=== PATIENT | male | born 1965 | race African-American/Black ===

== ENCOUNTER 2023-08-31 16:51 | Emergency (ER) | payer SELFPAY ==
[~2023-08-31] VITALS: Ht 165.1 cm; Wt 80.0 kg
[2023-08-31 17:07] VITALS: BP 126/90; PULSE 96; RESP 18; TEMP 98.6; O2SAT 99
== END 2023-09-01 03:22 | disposition home or self-care (01) ==
LOC: EDBD 16:51 → ER 16:51
DX: R41.82 Altered mental status, unspecified (principal); F10.129 Alcohol abuse with intoxication, unspecified; Y90.9 Presence of alcohol in blood, level not specified
CPT/HCPCS: 82962; 99284